=== PATIENT | female | born 1980 | race Caucasian/White ===

== ENCOUNTER 2019-10-15 18:38 | Emergency (ER) | payer OTHER ==
[~2019-10-15] VITALS: Ht 175.3 cm; Wt 90.7 kg
[2019-10-15 19:56] LABS: INFLUENZA A ANTIGEN Negative (Negative); INFLUENZA B ANTIGEN Negative (Negative)
[2019-10-15] MEDS ORDERED: PROMETH-CODEIN 65 ML PO (20:15)
[2019-10-15] MEDS ORDERED: ALBUTEROL2.5 MG/31 INH (20:15)
[2019-10-15 20:49] VITALS: BP 129/72
== END 2019-10-15 20:50 | disposition home or self-care (01) ==
LOC: M.ERS 18:38
PROVIDERS: Emergency Medicine
DX: J06.9 Acute upper respiratory infection, unspecified (principal); I10 Essential (primary) hypertension; Z98.890 Other specified postprocedural states; Z91.030 Bee allergy status